=== PATIENT | male | born 1960 | race Caucasian/White ===

== ENCOUNTER 2017-05-20 15:54 | Emergency (ER) | payer SELFPAY ==
[2017-05-20] MEDS ORDERED: TETANUS AND DIPHTHERIA PF 0.5 ML SYR IM ONE (16:10)
--- NOTE | 2017-05-20 16:15 | Emergency Department Record ---
History of Present Illness - General Chief complaint: Extremity Problem Stated complaint: INJURY TO THUMB ON LEFT HAND Time Seen by Provider: 05/20/17 16:06 Source: Patient Mode of Arrival: Ambulatory Limitations: No limitations - History of Present Illness Initial comments: 56 yo male presents after injuring his thumb. He was at work using a hammer and punch. He hit his left thumb with the hammer. He has pain and swelling at the distal joint. He has a small abrasion on the palm side. Last tetanus 2012 Onset/Timin -: Hour(s) Location: Left, Hand History of Same: No Radiation: Proximal Severity scale (1-10): 2 Quality: Aching Consistency: Intermittent Improves with: Nothing Worsens with: Exertion Associated Symptoms: Denies other symptoms - Related Data Home Medications Medication Instructions Recorded Confirmed Last Taken Esomeprazole Magnesium [Nexium] 20 mg PO DAILY 05/20/17 05/20/17 Unknown Allergies Allergy/AdvReac Type Severity Reaction Status Date / Time amoxicillin [From Augmentin] Allergy PT UNSURE Verified 05/20/17 16:08 OF REACTION bupropion [From Wellbutrin] Allergy PT UNSURE Verified 05/20/17 16:08 OF REACTION clavulanic acid Allergy PT UNSURE Verified 05/20/17 16:08 [From Augmentin] OF REACTION Travel Screening - Travel/Exposure Within Last 30 Days Have you traveled within the last 30 days?: No Review of Systems Constitutional: Denies: Chills, Fever, Malaise, Weakness Eyes: Denies: Eye discharge ENT: Denies: Congestion, Throat pain Respiratory: Denies: Cough Cardiovascular: Denies: Chest pain Endocrine: Denies: Fatigue Gastrointestinal: Denies: Abdominal pain, Diarrhea, Nausea, Vomiting Genitourinary: Denies: Dysuria, Frequency, Hematuria Musculoskeletal: Reports: As per HPI, Arthralgia Skin: Reports: Other (abrasion). Denies: Bruising, Change in color, Rash Neurological: Denies: Headache Psychiatric: Denies: Anxiety Hematological/Lymphatic: Denies: Blood Clots, Easy bleeding, Easy bruising, Swollen glands Past Medical History - SOCIAL HISTORY Smoking Status: Never smoker Alcohol Use: Occasional Drug Use: None - RESPIRATORY Hx Respiratory Disorders: No - CARDIOVASCULAR Hx Cardio Disorders: No - NEURO Hx Neuro Disorders: No - GI Hx GI Disorders: Yes Hx Reflux: Yes - Hx Genitourinary Disorders: No - ENDOCRINE Hx Endocrine Disorders: No - MUSCULOSKELETAL Hx Musculoskeletal Disorders: Yes Hx Arthritis: Yes - PSYCH Hx Psych Problems: No - HEMATOLOGY/ONCOLOGY Hx Hematology/Oncology Disorders: No Family Medical History Any Significant Family History?: No Physical Exam - General General Appearance: Alert, Oriented x3, Cooperative, No acute distress Limitations: No limitations - Head Head exam: Normal inspection - Eye Eye exam: Normal appearance - ENT ENT exam: Normal exam Ear exam: Normal external inspection Nasal Exam: Normal inspection Mouth exam: Normal external inspection - Neck Neck exam: Normal inspection - Cardiovascular Cardiovascular Exam: Regular rate, Normal rhythm, Normal heart sounds Peripheral Pulses: 2+: Radial (L) - Rectal Rectal exam: Deferred - exam: Deferred - Extremities Extremities exam: Full ROM, Joint swelling. negative: Normal inspection Image of Hand: 1 - mild swelling, tender at the knuckle 2 - slight superficial abrasion Course Vital Signs 05/20/17 16:02 Temperature 97.4 F L Pulse Rate 97 H Respiratory 18 Rate Blood Pressure 154/93 Pulse Ox 98 - Reevaluation(s) Reevaluation #1: The XR of the thumb was read as no acute process. Degenerative changes noted. 05/20/17 Disposition Disposition: Discharge Clinical Impression: Thumb contusion Qualifiers: Encounter type: initial encounter Damage to nail status: without damage Laterality: left Qualified Code(s): S60.012A - Contusion of left thumb without damage to nail, initial encounter Disposition: Home, Self-Care Condition: (1) Good Instructions: Finger Sprain (ED) Additional Instructions: Follow up recheck if any pain lasts longer than one week or if you have or develop any limitations in thumb use or movement Forms: Patient Portal Access Time of Disposition: 16:52 Quality - Quality Measures Quality Measures: N/A - Blood Pressure Screening Does Patient Have Any of the Following: No Blood Pressure Classification: Hypertensive Reading Systolic Measurement: 143 Diastolic Measurement: 107 Screening for High Blood Pressure: < Pre-Hypertensive BP, F/U Documented > [ [id number]] Pre-Hypertensive Follow-up Interventions: Referral to alternative/primary care provider.
[2017-05-20] MEDS ORDERED: Diph,Pert(Acell),Tet Vac 0.5 ML SYR IM ONE (16:29)
--- NOTE | 2017-05-22 11:43 | RADIOLOGY REPORT ---
EXAM: THUMB, LEFT HISTORY: HIT WITH A HAMMER. TECHNIQUE: Three views of the left thumb. COMPARISON: None. FINDINGS: Negative for an acute fracture or dislocation. Mild degenerative changes. Soft tissues are unremarkable. IMPRESSION: MILD DEGENERATIVE CHANGE. NEGATIVE FOR FRACTURE. JOB NUMBER: [id number] MTDD
== END 2017-05-20 16:58 | disposition home or self-care (01) ==
LOC: ER 15:54
DX: S60.012A Contusion of left thumb without damage to nail, initial encounter (principal); W22.8XXA Striking against or struck by other objects, initial encounter; Y93.H3 Activity, building and construction; Y99.0 Civilian activity done for income or pay
CPT/HCPCS: 90715; 96372; 99282; 99283